=== PATIENT | female | born 1970 | race Caucasian/White ===

== ENCOUNTER 2016-10-05 11:26 | Emergency (ER) | payer BC ==
[2016-10-05 11:40] VITALS: TEMP 98.2; BMI 31.3
[2016-10-05] MEDS ORDERED: ASPIRIN 81 MG CHEWABLE TABLETS PO ONE (12:07)
--- NOTE | 2016-10-05 12:13 | PDOC ---
History of Present Illness <Jadyn Negron - Last Filed: 10/05/16 12:22> - History of Present Illness Initial Comments: 10/05/16 12:20 - History of Present Illness Initial Comments: 10/05/16 12:13 Patient is a 46 year old female with a significant past medical history of vertigo who presents to the ED with complaint of chest pressure. Patient states that she is under a lot of stress as of lately and has been feeling very upset and anxious. She states that last night she was very upset and she developed chest pressure that was sharp pinching chest pain in nature localized to the left breast radiating to the mid chest with associated left arm discomfort. Patient notes that this morning she had an argument after which her chest pain became worse. She states that the chest pressure subsided which allowed her to present to work. She notes that at work she was sitting down as she became lightheaded, shaky and diaphoretic. She also notes that she developed palpitations during this episode of CP and was hyperventilating. Patient denies any leg swelling. She denies any recent illness or travel. No change with musculoskeletal movements or deep inspiratory breaths. Patient is not on oral contraceptives Allergy - NKA SH - no alcohol use, nonsmoker FH - mother CAD at 53 years old PCP - Dr. Medina <Jadyn Negron - Last Filed: 10/05/16 12:14> - General Chief Complaint: Chest Pain Stated Complaint: CHEST PAIN Time Seen by Provider: 10/05/16 11:56 Family history- Mother with CAD and stent, age 53, mother also has rheumatic valvular disease Patient is a nonsmoker, no history of borderline diabetes or hyperlipidemia or hypertension No recent travel, no oral contraceptives, no recent intercurrent illnesses <Kitty Russell - Last Filed: 10/05/16 21:53> - General Chief Complaint: Chest Pain Stated Complaint: CHEST PAIN Time Seen by Provider: 10/05/16 11:56 Past History <Jadyn Negron - Last Filed: 10/05/16 12:22> - Past Medical History Other medical history: Vertigo - Immunization History Immunization Up to Date: Yes - Psycho/Social/Smoking Cessation Hx Anxiety: No Suicidal Ideation: No Smoking History: Never smoked Have you smoked in the past 12 months: No Information on smoking cessation initiated: No Hx Alcohol Use: No Drug/Substance Use Hx: No Substance Use Type: None <Kitty Russell - Last Filed: 10/05/16 21:53> - Past Medical History Allergies/Adverse Reactions: Allergies Allergy/AdvReac Type Severity Reaction Status Date / Time No Known Allergies Allergy Verified 10/05/16 19:11 Home Medications: Ambulatory Orders Meclizine HCl [Antivert -] 25 mg PO QID #28 tablet 04/13/15 Review of Systems - Review of Systems Able to Perform ROS?: Yes Comments:: 10/05/16 12:08 12 point review of systems is as per history of present illness and otherwise negative <Kitty Russell - Last Filed: 10/05/16 21:53> *Physical Exam - Vital Signs Last Vital Signs Temp Pulse Resp BP Pulse Ox 98.2 F 55 L 17 133/74 100 10/05/16 11:33 10/05/16 11:33 10/05/16 11:33 10/05/16 11:33 10/05/16 11:33 <Jadyn Negron - Last Filed: 10/05/16 12:22> - Vital Signs Last Vital Signs Temp Pulse Resp BP Pulse Ox 98.2 F 55 L 17 133/74 100 10/05/16 11:33 10/05/16 11:33 10/05/16 11:33 10/05/16 11:33 10/05/16 11:33 - Physical Exam Comments: 10/05/16 12:09 Physical exam Last Vital Signs Temp Pulse Resp BP Pulse Ox 98.2 F 55 L 17 133/74 100 10/05/16 11:33 10/05/16 11:33 10/05/16 11:33 10/05/16 11:33 10/05/16 11:33 GENERAL: The patient is awake, alert, and fully oriented, and in no apparent distress. HEAD: Normal with no signs of trauma. EYES: sclera anicteric, conjunctiva are normal. ENT:Moist mucous membranes. NECK: Normal range of motion, supple LUNGS: Breath sounds equal, clear to auscultation bilaterally. No wheezes, and no crackles. HEART: Regular rate and rhythm, normal S1 and S2 without murmur, rub or gallop. ABDOMEN: Soft, nontender, normoactive bowel sounds. No guarding, no rebound. No masses appreciated. EXTREMITIES: Normal range of motion, no edema. No clubbing or cyanosis. No cords, erythema, or tenderness. NEUROLOGICAL: Cranial nerves II through XII grossly intact. Normal speech, motor 5 out of 5 and equal in the upper lower extremity is bilaterally Grossly nonfocal neurologic exam PSYCH: Normal mood, normal affect. SKIN: Warm, Dry, <Kitty Russell - Last Filed: 10/05/16 21:53> Heart Score/ECG Review - History History: Moderately suspicious - Electrocardiogram EKG: Normal - Age Age: 45-65 - Risk Factors Risk Factors Heart Score: Yes Positive family hx of cardiac disease Based on the list above the patient has:: 1-2 risk factors - Troponin Troponin: </= normal limit - Score Heart Score - Total: 3 <Kitty Russell - Last Filed: 10/05/16 21:53> ED Treatment Course - LABORATORY CBC & Chemistry Diagram: 10/05/16 12:10 10/05/16 12:10 <Jadyn Negron - Last Filed: 10/05/16 12:22> - LABORATORY CBC & Chemistry Diagram: 10/05/16 12:10 10/05/16 12:10 - RADIOLOGY Radiology Studies Ordered: Category Date Time Status CHEST PA & LAT [RAD] Stat Radiology 10/05/16 12:07 Ordered <Kitty Russell - Last Filed: 10/05/16 21:53> Medical Decision Making - Medical Decision Making EKG Sinus bradycardia 54, normal axis Normal AV and IV conduction time Normal QTC Normal EKG 10/05/16 12:11 46-year-old female who is under a lot of stress recently She is a nonsmoker, her mother has CAD, and a stent at age 53, as well as a heart valve problem (rheumatic heart disease) She has no history of diabetes, hypertension, or hyperlipidemia She is not on oral contraceptives and has not traveled recently She's had no cough or recent intercurrent illness Heart score 3 10/05/16 14:46 Laboratory Results - last 24 hr 10/05/16 10/05/16 10/05/16 12:10 12:10 12:10 WBC 6.7 RBC 4.38 Hgb 9.2 L Hct 29.7 L MCV 67.8 L MCHC 31.0 L RDW 18.6 H Plt Count 247 MPV 9.9 Neutrophils % 61.2 Lymphocytes % 28.0 Monocytes % 8.1 Eosinophils % 1.6 Basophils % 1.1 INR 1.04 Sodium 141 Potassium 4.2 Chloride 109 H Carbon Dioxide 24 Anion Gap 8 BUN 19 H Creatinine 0.7 Creat Clearance w eGFR > 60 Random Glucose 84 Calcium 9.2 Magnesium 2.0 Total Bilirubin 0.4 AST 20 ALT 18 Alkaline Phosphatase 57 Creatine Kinase 93 Troponin I < 0.02 Total Protein 6.7 Albumin 3.7 Triglycerides 80 Cholesterol 186 Total LDL Cholesterol 106 H HDL Cholesterol 73 H Chest x-ray Chest x-ray-no definite infiltrate 10/05/16 15:52 Case discussed with both Dr. Cuevas, and Dr. Davis cardiology Will check a second set of enzymes at 6 PM If negative will discharge to home, and Dr. Davis will see the patient in the office tomorrow 10/05/16 17:29 SIGN OUT Case discussed in detail with oncoming Emergency Physician including history, physical exam and ancillary studies. [facility] [place] [place] Emergency Physician has assumed care for the patient and will complete the evaluation and treatment. Talha at 5:30 PM awaiting second set of cardiac enzymes Plan-if second set of cardiac enzymes negative, patient will go home, and be seen by cardiology in the office tomorrow <Kitty Russell - Last Filed: 10/05/16 21:53> *DC/Admit/Observation/Transfer <Jadyn Negron - Last Filed: 10/05/16 12:22> <Kitty Russell - Last Filed: 10/05/16 21:53> Diagnosis at time of Disposition: Atypical chest pain - Discharge Dispostion Disposition: HOME Condition at time of disposition: Stable - Referrals Referrals: Bisi Medina MD [Primary Care Provider] - Aly Davis MD [Staff Physician] - - Patient Instructions Printed Discharge Instructions: DI for Atypical Chest Pain
[2016-10-05] MEDS ORDERED: morphine CARPU-JECT 2 MG/1 ML DISP.SYRIN IVPUSH ONE (12:24)
[2016-10-05 12:29] LABS: BASOPHIL 1.1 % (0-2.0); EOSINOPHIL 1.6 % (0-4.5); MEAN CELL VOLUME 67.8 fl (80-96); MEAN PLT VOLUME 9.9 fl (7.5-11.1); NEUTROPHILS 61.2 % (42.8-82.8); PLATELET COUNT 247 K/MM3 (134-434); RDW 18.6 % (11.6-15.6); WHITE BLOOD COUNT 6.7 K/mm3 (4.0-10.0)
[2016-10-05] MEDS ORDERED: ASPIRIN 81 MG CHEWABLE TABLETS ONE (12:29)
[2016-10-05] MEDS ORDERED: morphine CARPU-JECT 2 MG/1 ML DISP.SYRIN ONE (12:29)
[2016-10-05 12:48] LABS: ALBUMIN 3.7 g/dl (3.4-5.0); ANION GAP 8 (8-16); BILIRUBIN,TOTAL 0.4 mg/dL (0.2-1.0); CALCIUM 9.2 mg/dL (8.5-10.1); CHOLESTEROL 186 mg/dL (50-200); CO2 24 mmol/L (21-32); COCKROFT - GAULT 110.2705; CREATININE 0.7 mg/dL (0.55-1.02); GLUCOSE,RANDOM 84 mg/dL (74-106); LDL CHOLESTEROL (ONLY SJRH) 106 mg/dL (5-100); SGOT/AST 20 U/L (15-37); SGPT/ALT 18 U/L (12-78); TOT PROT 6.7 g/dl (6.4-8.2)
[2016-10-05 12:49] LABS: ALK PHOS 57 U/L (45-117); TROPONIN I < 0.02 ng/ml (0.00-0.05)
[2016-10-05 12:52] LABS: INR 1.04 (0.82-1.09); PROTHROMBIN TIME (PATIENT) 11.4 SEC (9.98-11.88)
--- NOTE | 2016-10-05 13:23 | EKG ---
Test Reason : Blood Pressure : / mmHG Vent. Rate : 054 BPM Atrial Rate : 054 BPM P-R Int : 174 ms QRS Dur : 092 ms QT Int : 442 ms P-R-T Axes : 038 016 016 degrees QTc Int : 419 ms SINUS BRADYCARDIA OTHERWISE NORMAL ECG WHEN COMPARED WITH ECG OF 22-SEP-2006 19:16, NO SIGNIFICANT CHANGE WAS FOUND Confirmed by JAVIER MANCILLA MD ([id number]) on 10/05/2016 1:23:46 PM Referred By: Confirmed By:JAVIER MANCILLA MD
[2016-10-05 14:58] LABS: OVALOCYTES 1+
[2016-10-05 15:02] VITALS: BP 128/75; PULSE 62
--- NOTE | 2016-10-05 15:40 | CON.CARD ---
Consult Consult Specialty:: Cardiology Referred by:: Emergency Medicine Reason for Consultation:: Chest pain - History of Present Illness Chief Complaint: Chest pain History of Present Illness: Patient is a 46 year old female with a significant past medical history of vertigo who presents to the ED with complaint of non-exertional sharp chest pressure. Patient states that she is under a lot of stress as of lately and has been feeling very upset and anxious. She states that last night she was very upset and she developed chest pressure that was sharp pinching chest pain in nature localized to the left breast radiating to the mid chest with associated left arm discomfort. Patient notes that this morning she had an argument after which her chest pain became worse. She states that the chest pressure subsided which allowed her to present to work. She notes that at work she was sitting down as she became lightheaded, shaky and diaphoretic. She also notes that she developed palpitations during this episode of CP and was hyperventilating with parasthesias. Patient denies dyspnea, palpitations, true syncope, orthopnea , PND or LE edema, currently asymptomatic. No change with musculoskeletal movements or deep inspiratory breaths. Patient is not on oral contraceptives Allergy - NKA SH - no alcohol use, nonsmoker FH - mother CAD at 53 years old PCP - Dr. Medina - History Source History Provided By: Patient Limitations to Obtaining History: No Limitations - Alcohol/Substance Use Hx Alcohol Use: No - Smoking History Smoking history: Never smoked Have you smoked in the past 12 months: No Home Medications - Allergies Allergies/Adverse Reactions: Allergies Allergy/AdvReac Type Severity Reaction Status Date / Time No Known Allergies Allergy Verified 04/13/15 04:48 - Home Medications Home Medications: Ambulatory Orders Meclizine HCl [Antivert -] 25 mg PO QID #28 tablet 04/13/15 Vital Signs: Vital Signs Temperature 98.2 F 10/05/16 11:33 Pulse Rate 62 10/05/16 15:01 Respiratory Rate 18 10/05/16 15:01 Blood Pressure 128/75 10/05/16 15:01 O2 Sat by Pulse Oximetry (%) 99 10/05/16 15:01 Constitutional: Yes: No Distress, Calm Neck: Yes: Supple Respiratory: Yes: Regular, CTA Bilaterally Gastrointestinal: Yes: Normal Bowel Sounds, Soft Cardiovascular: Yes: Regular Rate and Rhythm JVD: No Carotid Bruit: No Heart Sounds: Yes: S1, S2 Edema: No - Other Data Labs, Other Data: CBC, BMP 10/05/16 12:10 10/05/16 12:10 INR, PTT INR 1.04 (0.82-1.09) 10/05/16 12:10 Troponin, BNP 10/05/16 12:10 Troponin I < 0.02 Troponin, BNP 10/05/16 12:10 Troponin I < 0.02 Sinus bradycardia [address]-T changes Imaging - Results Chest X-ray: Report Reviewed (NAD) Problem List - Problems (1) Atypical chest pain Code(s): R07.89 - OTHER CHEST PAIN (2) Anemia Code(s): D64.9 - ANEMIA, UNSPECIFIED Qualifiers: Anemia type: unspecified type Qualified Code(s): D64.9 - Anemia, unspecified Assessment/Plan 1. Atypical chest pain syndrome consider anxiety-related 2. Anemia P:1. Ruling out for VT 2. Once ruled out for VT, anticipate d/c with f/u in office for outpatient stress testing, patient to october appointment 3. Thank you for consultative opportunity
[2016-10-05 19:14] LABS: TROPONIN I < 0.02 ng/ml (0.00-0.05)
--- NOTE | 2016-10-05 20:29 | PDOC ---
*Physical Exam - Vital Signs Last Vital Signs Temp Pulse Resp BP Pulse Ox 98.2 F 62 18 128/75 99 10/05/16 11:33 10/05/16 15:01 10/05/16 15:01 10/05/16 15:01 10/05/16 15:01 - Physical Exam Comments: 10/05/16 20:27 Patient is a 46-year-old female endorsed to me by Dr. Elizabeth Metzger. Patient presented with atypical chest pain and underwent serial cardiac enzyme testing which was noted to be negative at this time. Patient was also seen and evaluated by Dr. Davis of cardiology who advised to set rule out with follow-up as an outpatient for stress testing. I've advised the patient of the plan of care and she is expressed understanding. Will discharge.. ED Treatment Course - LABORATORY CBC & Chemistry Diagram: 10/05/16 12:10 10/05/16 12:10 - ADDITIONAL ORDERS Additional order review: Laboratory Results 10/05/16 10/05/16 10/05/16 18:29 12:10 12:10 INR 1.04 Sodium 141 Potassium 4.2 Chloride 109 H Carbon Dioxide 24 Anion Gap 8 BUN 19 H Creatinine 0.7 Creat Clearance w eGFR > 60 Random Glucose 84 Calcium 9.2 Magnesium 2.0 Total Bilirubin 0.4 AST 20 ALT 18 Alkaline Phosphatase 57 Creatine Kinase 83 93 Troponin I < 0.02 < 0.02 Total Protein 6.7 Albumin 3.7 Triglycerides 80 Cholesterol 186 Total LDL Cholesterol 106 H HDL Cholesterol 73 H 10/05/16 12:10 RBC 4.38 MCV 67.8 L MCHC 31.0 L RDW 18.6 H MPV 9.9 Neutrophils % 61.2 Lymphocytes % 28.0 Monocytes % 8.1 Eosinophils % 1.6 Basophils % 1.1 - Medications Given in the ED: ED Medications Discontinued Medications Generic Name Dose Route Start Last Admin Trade Name Freq PRN Reason Stop Dose Admin Aspirin 162 mg 10/05/16 12:07 10/05/16 12:32 Asa - PO 10/05/16 12:08 162 mg ONCE ONE Administration Morphine Sulfate 2 mg 10/05/16 12:24 10/05/16 12:32 Morphine Injection - IVPUSH 10/05/16 12:25 2 mg ONCE ONE Administration *DC/Admit/Observation/Transfer Diagnosis at time of Disposition: Atypical chest pain - Discharge Dispostion Disposition: HOME Condition at time of disposition: Stable - Referrals Referrals: Bisi Medina MD [Primary Care Provider] - Aly Davis MD [Staff Physician] - - Patient Instructions Printed Discharge Instructions: DI for Atypical Chest Pain
== END 2016-10-05 20:39 | disposition home or self-care (01) ==
LOC: JER 11:26
DX: R07.89 Other chest pain (principal); D64.9 Anemia, unspecified
CPT/HCPCS: 36415; 71020-TC; 80053; 80061; 82550; 83721; 83735; 84484; 85025; 85610; 93005; 93010; 99285-25